=== PATIENT | female | born 1995 | race Caucasian/White ===

== ENCOUNTER 2017-11-05 10:28 | Emergency (ER) | payer OTHER ==
[2017-11-05 10:54] VITALS: BP 140/83; PULSE 63; TEMP 97.7; BMI 28.8
[2017-11-05] MEDS ORDERED: IBUPROFEN 600 MG TABLET (FP) PO ONE ×2 (11:57→12:02)
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
== END 2017-11-05 12:13 | disposition home or self-care (01) ==
LOC: JERFT 10:28
DX: M54.5 Low back pain (principal); V43.52XA Car driver injured in collision with other type car in traffic accident, initial encounter; Y92.488 Other paved roadways as the place of occurrence of the external cause; Y93.89 Activity, other specified; Y99.8 Other external cause status; D64.9 Anemia, unspecified; E73.9 Lactose intolerance, unspecified
CPT/HCPCS: 99281-25

== ENCOUNTER 2018-06-09 15:09 | Emergency (ER) | payer BC, OTHER ==
[2018-06-09 15:16] VITALS: BP 118/72; PULSE 90; TEMP 98; BMI 29.3
[2018-06-09] MEDS ORDERED: KETOROLAC TROMETHAMINE 60 MG/2 ML VIAL IM ONE (16:04)
--- NOTE | 2018-06-09 16:04 | PDOC ---
History of Present Illness - General Chief Complaint: Pain Stated Complaint: LOWER BACK PAIN Time Seen by Provider: 06/09/18 15:34 Past History - Travel Traveled outside of the country in the last 30 days: No Close contact w/someone who was outside of country & ill: No - Past Medical History Allergies/Adverse Reactions: Allergies Allergy/AdvReac Type Severity Reaction Status Date / Time No Known Allergies Allergy Verified 06/09/18 15:15 Home Medications: Ambulatory Orders Cyclobenzaprine HCl [Flexeril -] 10 mg PO HS #10 tablet 06/09/18 Ibuprofen 800 mg PO TID #30 tablet 06/09/18 Oxycodone HCl/Acetaminophen [Percocet 5-325 mg Tablet] 1 tab PO Q6H #15 tablet MDD 4 06/09/18 Anemia: Yes COPD: No Other medical history: herniated discs in lower back - Suicide/Smoking/Psychosocial Hx Smoking Status: No Smoking History: Never smoked Number of Cigarettes Smoked Daily: 0 Hx Alcohol Use: No Drug/Substance Use Hx: No Substance Use Type: None Review of Systems - Review of Systems Able to Perform ROS?: Yes Comments:: 06/09/18 17:10 CONSTITUTIONAL: Absent: fever, chills, diaphoresis, generalized weakness, malaise, loss of appetite HEENT: Absent: rhinorrhea, nasal congestion, throat pain, throat swelling, difficulty swallowing, mouth swelling, ear pain, eye pain, visual Changes CARDIOVASCULAR: Absent: chest pain, loss of consciousness, palpitations, irregular heart rate, peripheral edema RESPIRATORY: Absent: cough, shortness of breath, dyspnea with exertion, orthopnea, wheezing, stridor, hemoptysis GASTROINTESTINAL: Absent: abdominal pain, abdominal distension, nausea, vomiting, diarrhea, constipation, melena, hematochezia GENITOURINARY: Absent: dysuria, frequency, urgency, hesitancy, hematuria, flank pain, genital pain MUSCULOSKELETAL: Absent: myalgia, arthralgia, joint swelling SKIN: Absent: rash, itching, pallor HEMATOLOGIC/IMMUNOLOGIC: Absent: easy bleeding, easy bruising, lymphadenopathy, frequent infections ENDOCRINE: Absent: unexplained weight gain, unexplained weight loss, heat intolerance, cold intolerance NEUROLOGIC: Absent: headache, focal weakness or paresthesias, dizziness, unsteady gait, seizure, mental status changes, bladder or bowel incontinence PSYCHIATRIC: Absent: anxiety, depression, suicidal or homicidal ideation, hallucinations. Is the patient limited [place] proficient: No *Physical Exam - Vital Signs Last Vital Signs Temp Pulse Resp BP Pulse Ox 98 F 90 18 118/72 99 06/09/18 15:13 06/09/18 15:13 06/09/18 15:13 06/09/18 15:13 06/09/18 15:13 - Physical Exam Comments: 06/09/18 17:10 GENERAL: Well developed, well nourished. Awake and alert. No acute distress. HEENT: Normocephalic, atraumatic. PERRLA, EOMI. No conjunctival pallor. Sclera are non- icteric. Moist mucous membranes. Oropharynx is clear. NECK: Supple. Full ROM. No JVD. Carotid pulses 2+ and symmetric, without bruits. No thyromegaly. No lymphadenopathy. CARDIOVASCULAR: Regular rate and rhythm. No murmurs, rubs, or gallops. Distal pulses are 2+ and symmetric. PULMONARY: No evidence of respiratory distress. Lungs clear to auscultation bilaterally. No wheezing, rales or rhonchi. ABDOMINAL: Soft. Non-tender. Non-distended. No rebound or guarding. No organomegaly. Normoactive bowel sounds. MUSCULOSKELETAL Normal range of motion at all joints. No bony deformities or tenderness. No CVA tenderness. EXTREMITIES: No cyanosis. No clubbing. No edema. No calf tenderness. SKIN: Warm and dry. Normal capillary refill. No rashes. No jaundice. NEUROLOGICAL: Alert, awake, appropriate. Cranial nerves 2-12 intact. No deficits to light touch and temperature in face, upper extremities and lower extremities. No motor deficits in the in face, upper extremities and lower extremities. Normoreflexic in the upper and lower extremities. Normal speech. Toes are down- going bilaterally. Gait is normal without ataxia. PSYCHIATRIC: Cooperative. Good eye contact. Appropriate mood and affect. *DC/Admit/Observation/Transfer Diagnosis at time of Disposition: Low back pain Qualifiers: Chronicity: acute Back pain laterality: midline Sciatica presence: with sciatica Sciatica laterality: bilateral sciatica Qualified Code(s): M54.42 - Lumbago with sciatica, left side; M54.41 - Lumbago with sciatica, right side - Discharge Dispostion Disposition: HOME Condition at time of disposition: Stable Decision to Admit order: No - Referrals Referrals: Karen Alejandra MD [Primary Care Provider] - Chico Ferrell MD [Staff Physician] - - Patient Instructions Printed Discharge Instructions: DI for Low Back Pain Additional Instructions: You have low back pain due to a muscle spasm. Please take ibuprofen 800 mg 3 times a day not to exceed 3000 mg a day. You were also prescribed Flexeril. Please take this medication every 8 hours for the first day. Then take the medication before you go to bed. Do not drive after taking this medication as it may make you sleepy. You may take a percocet every 6 hours as needed for break through pain. You may use warm compresses on your back to help with her symptoms. Please follow-up with your primary care doctor. If your symptoms do not resolve in 3-5 days, follow-up with neurosurgery/spine. A referral has been provided for you. Return to the emergency department if you have worsening back pain, bladder or bowel incontinence, numbness and tingling in her legs, changes in the way you walk, or any new or worsening symptoms. Do not lift more than 10 pounds for the next week - Post Discharge Activity Forms/Work/School Notes: Back to Work
[2018-06-09] MEDS ORDERED: CYCLOBENZAPRINE HCL 10 MG TABLET (FP) PO ONE (16:05)
[2018-06-09] MEDS ORDERED: KETOROLAC TROMETHAMINE 60 MG/2 ML VIAL ONE (16:09)
[2018-06-09] MEDS ORDERED: CYCLOBENZAPRINE HCL 10 MG TABLET (FP) ONE (16:09)
== END 2018-06-09 17:24 | disposition home or self-care (01) ==
LOC: JERFT 15:09
PROC: 3E0233Z Introduction of Anti-inflammatory into Muscle, Percutaneous Approach (ICD-10-PCS; principal; 2018-06-09)
DX: M54.41 Lumbago with sciatica, right side (principal); M54.42 Lumbago with sciatica, left side; Z86.2 Personal history of diseases of the blood and blood-forming organs and certain disorders involving the immune mechanism
CPT/HCPCS: 72100-TC-FY; 96372; 99281-25

== ENCOUNTER 2018-11-01 23:04 | Emergency (ER) | payer BC ==
[2018-11-01 23:08] VITALS: BP 131/80; BMI 31.3
--- NOTE | 2018-11-02 00:10 | PDOC ---
History of Present Illness - General Chief Complaint: Pain Stated Complaint: ABD PAIN History Source: Patient Exam Limitations: No Limitations - History of Present Illness Initial Comments: 11/02/18 00:04 23 yo F with a hx of anemia presents to the emergency department with lower abdominal pain with associative nausea and dysuria. Per the patient, the pain came about at around 1 pm, burning/stabbing sensation, 10/10, non radiating, with some relief with tylenol. Endorses the following: bilateral lower back pain. States this pain feels like her previous UTI 1 year ago. She uses oral contraceptives with LMP 2-3 weeks ago. Denies the following: fever, chills, visual changes, hematuria, vaginal bleeding/spotting, diarrhea, trauma, and leg pain/swelling. Meds: None Allergies: None Social: Denies tobacco, alcohol, and substance abuse. 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 Past History - Past Medical History Allergies/Adverse Reactions: Allergies Allergy/AdvReac Type Severity Reaction Status Date / Time No Known Allergies Allergy Verified 11/01/18 23:08 Home Medications: Ambulatory Orders Cyclobenzaprine HCl [Flexeril -] 10 mg PO HS #10 tablet 06/09/18 Ibuprofen 800 mg PO TID #30 tablet 06/09/18 Oxycodone HCl/Acetaminophen [Percocet 5-325 mg Tablet] 1 tab PO Q6H #15 tablet MDD 4 06/09/18 Sulfamethoxazole/Trimethoprim [Bactrim Ds -] 1 tab PO BID #28 tablet 11/02/18 Anemia: Yes COPD: No - Suicide/Smoking/Psychosocial Hx Smoking Status: No Smoking History: Never smoked Number of Cigarettes Smoked Daily: 0 Hx Alcohol Use: No Drug/Substance Use Hx: No Substance Use Type: None Review of Systems - Review of Systems Able to Perform ROS?: Yes Is the patient limited Serbian proficient: No Constitutional: No: Chills, Diaphoresis, Fever, Weakness HEENTM: No: Recent change in vision, Ear Pain, Nose Pain, Throat Pain, Mouth Pain Respiratory: No: Cough, Shortness of Breath, SOB with Exertion, SOB at Rest, Hemoptysis Cardiac (ROS): No: Chest Pain, Lightheadedness, Palpitations, Syncope, Chest Tightness ABD/GI: No: Constipated, Diarrhea, Nausea, Rectal Bleeding, Vomiting, Tarry Stools : Yes: Dysuria. No: Hematuria, Urgency Musculoskeletal: Yes: Back Pain. No: Joint Pain, Neck Pain Integumentary: No: Erythema, Rash Neurological: No: Headache, Numbness, Ataxia, Dizziness Psychiatric: No: Change in Appetite Endocrine: No: Unexplained Weight Gain Hematologic/Lymphatic: No: Anemia *Physical Exam - Vital Signs Last Vital Signs Temp Pulse Resp BP Pulse Ox 97.8 F 86 18 131/80 98 11/01/18 23:06 11/01/18 23:06 11/01/18 23:06 11/01/18 23:06 11/01/18 23:06 - Physical Exam General Appearance: Yes: Nourished, Appropriately Dressed. No: Apparent Distress, Intoxicated HEENT: positive: EOMI, BRAYDEN, Normal ENT Inspection, Symmetrical, Pharynx Normal , Hearing Grossly Normal. negative: Pale Conjunctivae, Scleral Icterus (R), Scleral Icterus (L), Muffled/Hoarse voice, Pharyngeal Erythema, Tonsillar Exudate, Tonsillar Erythema, Nasal Congestion, Rhinorrhea, Sinus Tenderness, Excessive drooling Neck: positive: Trachea midline, Supple. negative: Tender, Lymphadenopathy (R) , Lymphadenopathy (L), Tender lateral, Tender midline Respiratory/Chest: positive: Lungs Clear, Normal Breath Sounds. negative: Chest Tender, Respiratory Distress, Accessory Muscle Use, Crackles, Rales, Rhonchi, Stridor, Wheezing, Hyperresonant Cardiovascular: positive: Regular Rhythm, Regular Rate, S1, S2. negative: Systolic Murmur Gastrointestinal/Abdominal: positive: Normal Bowel Sounds, Tender (suprapubic tenderness. No tenderness in the RLQ, LLQ, RUQ, and LUQ. ), Flat, Soft. negative: Rebound, Tenderness, Hernia Lymphatic: negative: Adenopathy Musculoskeletal: positive: Normal Inspection, CVA Tenderness (R), CVA Tenderness (L). negative: Vertebral Tenderness Extremity: positive: Normal Capillary Refill, Normal Inspection, Normal Range of Motion. negative: Tender Integumentary: positive: Normal Color, Dry, Warm. negative: Rash Neurologic: positive: fur dyer II-XII NML intact, Fully Oriented, Alert, Normal Mood/ Affect, Normal Response, Motor Strength 5/5 Moderate Sedation - Procedure Monitoring Vital Signs: Procedure Monitoring Vital Signs Temperature 97.8 F 11/01/18 23:06 Pulse Rate 86 11/01/18 23:06 Respiratory Rate 18 11/01/18 23:06 Blood Pressure 131/80 11/01/18 23:06 O2 Sat by Pulse Oximetry (%) 98 11/01/18 23:06 Medical Decision Making - Medical Decision Making 23 yo F with a hx of anemia presents to the emergency department with lower abdominal pain with associative nausea and dysuria. Initial vitals; Initial Vital Signs Temp Pulse Resp BP Pulse Ox 97.8 F 86 18 131/80 98 11/01/18 23:06 11/01/18 23:06 11/01/18 23:06 11/01/18 23:06 11/01/18 23:06 Work up: ddx: UTI vs nephrolithiasis vs pyelo vs Laboratory Tests 11/02/18 00:21 Urine Color Yellow Urine Appearance Cloudy Urine pH 5.0 Ur Specific [place] 1.034 Urine Protein Negative Urine Glucose (UA) Negative Urine Ketones Trace H Urine Blood Negative Urine Nitrite Negative Urine Bilirubin Negative Urine Urobilinogen 2.0 H Ur Leukocyte Esterase 2+ H Urine WBC (Auto) 884 Urine RBC (Auto) 41 Ur Epithelial Cells Rare Urine Mucus Many Urine HCG, Qual Negative patient has a UTI. Will prescribe bactrim BID for 14 days. Patient agreed and will follow up with primary medical doctor. Dispo: Discharge. At the time of discharge, patient was able to ambulate out of the department. *DC/Admit/Observation/Transfer Diagnosis at time of Disposition: Pyelonephritis UTI (urinary tract infection) Qualifiers: Urinary tract infection type: site unspecified Hematuria presence: without hematuria Qualified Code(s): N39.0 - Urinary tract infection, site not specified - Discharge Dispostion Disposition: HOME Decision to Admit order: No - Prescriptions Prescriptions: Sulfamethoxazole/Trimethoprim [Bactrim Ds -] 1 tab PO BID #28 tablet - Referrals Referrals: Karen Alejandra MD [Primary Care Provider] - - Patient Instructions Printed Discharge Instructions: DI for Urinary Tract Infection (UTI) Additional Instructions: You were seen in the emergency department for the evaluation of your pain with urination and lower abdominal pain. Your urine analysis shows that you have an urinary infection. You have been prescribed bactrim twice a day for 14 days; please take this. Please return to the emergency department if you have worsening symptoms or new concerning symptoms such as fevers, increasing back pain, chills, and uncontrollable nausea and vomiting. Please follow up with your primary medical doctor within 1 week after discharge for follow up care and management. Thank you. - Post Discharge Activity Forms/Work/School Notes: Back to Work
[2018-11-02 00:35] LABS: URINE APPEARANCE CLOUDY; URINE BILIRUBIN NEGATIVE (<2.0 mg/dL); URINE COLOR YELLOW; URINE GLUCOSE (UA) NEGATIVE (NEGATIVE); URINE KETONE TRACE (NEGATIVE); URINE LEUK ESTERASE 2+ (NEGATIVE); URINE NITRITE NEGATIVE (NEGATIVE); URINE PROTEIN NEGATIVE (NEGATIVE)
[2018-11-02 00:36] LABS: HCG,QUALITATIVE URINE Negative
[2018-11-02 00:41] LABS: EPI CELLS RARE /HPF (FEW); URINE MUCUS MANY
--- NOTE | 2018-11-02 01:08 | PDOC ---
Attending Attestation - Resident Resident Name: Darius Cloud - ED Attending Attestation I have performed the following: I have examined & evaluated the patient, The case was reviewed & discussed with the resident, I agree w/resident's findings & plan, Exceptions are as noted - HPI HPI: 11/02/18 01:17 The patient is a 23 year old female, with a significant past medical history of anemia who presents to the emergency department with lower abdominal pain described as burning, stabbing sensation, 8/10, radiating to her lower back since 1pm with associated nausea and dysuria. The patient reports this pain feels like her previous UTI (1 year ago). The patient notes her last menstrual period was 2-3 weeks ago. The patient denies chest pain, shortness of breath, headache or dizziness. The patient denies fever, chills, vomit, diarrhea or constipation. The patient denies frequency, urgency or hematuria. Allergies: NKA Past surgical history: Elective . Social history: No reported PCP: Dr. Alejandra - Physicial Exam PE: 11/02/18 01:18 GENERAL: Awake, alert, and fully oriented, in no acute distress. Non toxic appearing. EYES: PERRLA, EOMI, sclera anicteric, conjunctiva clear ENT: Oropharynx clear without exudates. Moist mucosa LUNGS: Breath sounds equal, clear to auscultation bilaterally. No wheezes, and no crackles HEART: Regular rate and rhythm, normal S1 and S2, no murmurs, rubs or gallops ABDOMEN: Soft, +suprapubic ttp. No RLQ or LLQ ttp. No guarding, no rebound. No masses : +R CVAT EXTREMITIES: Normal range of motion, no edema. No cords, erythema, or tenderness NEUROLOGICAL: Normal speech, cranial nerves intact, equal strength and sensation b/l SKIN: Warm, Dry, normal turgor, no rashes or lesions noted. - Medical Decision Making 11/02/18 01:20 23yo F presents to the ED with dysuria, suprapubic pain. Vitals wnl. Exam with R CVAT. UA ++ for UTI. Likely pyelonephritis. Pt non toxic appearing, afebrile, tolerating PO and thus is outpt candidate for pyelo tx. Will prescribe 14 day course of bactrim, return precautions given. Pt requests DC home. I discussed the physical exam findings, ancillary test results and final diagnoses with the patient. I answered all of the patient's questions. The patient was satisfied with the care received and felt comfortable with the discharge plan and treatment plan. The patient will call their primary care physician within 24 hours to arrange follow-up and will return to the Emergency Department with any new, persistent or worsening symptoms.
[2018-11-02 01:59] VITALS: PULSE 80; TEMP 98
== END 2018-11-02 01:43 | disposition home or self-care (01) ==
LOC: JER 23:04
DX: N39.0 Urinary tract infection, site not specified (principal); N12 Tubulo-interstitial nephritis, not specified as acute or chronic
CPT/HCPCS: 81003; 81015; 84703; 87086; 99282-25

== ENCOUNTER 2020-05-08 21:55 | Emergency (ER) | payer BC, OTHER ==
--- NOTE | 2020-05-08 22:00 | PDOC ---
Rapid Medical Evaluation Time Seen by Provider: 05/08/20 21:57 Medical Evaluation: Allergies Allergy/AdvReac Type Severity Reaction Status Date / Time No Known Allergies Allergy Verified 11/01/18 23:08 05/08/20 21:57 I performed a brief in-person evaluation of this patient. Pt is a 24 y/o female who presents to the ED with complaint of R knee pain after a pop while lifting dog food bags yesterday. She has been walking on it since but states now it is getting worse. Pt took ibuprofen without any relief. Pertinent physical exam findings: pt able to straight leg raise, no gross deformity I have ordered the following: R knee xray Patient to proceed to ED for further evaluation. Discharge Disposition - Diagnosis Right knee pain - Referrals - Patient Instructions - Post Discharge Activity
[2020-05-08 22:01] VITALS: BP 117/75; PULSE 97; TEMP 98.2; BMI 28.5
[2020-05-08] MEDS ORDERED: KETOROLAC TROMETHAMINE 30 MG/1 ML VIAL IVPUSH ONE (22:42)
[2020-05-08] MEDS ORDERED: ACETAMINOPHEN 500 MG TABLET (FP) PO ONE (22:42)
[2020-05-08] MEDS ORDERED: ACETAMINOPHEN 325 MG TABLET (FP) ONE (22:51)
[2020-05-08] MEDS ORDERED: KETOROLAC TROMETHAMINE 30 MG/1 ML VIAL ONE (22:51)
--- NOTE | 2020-05-08 22:51 | PDOC ---
Documentation entered by Veronica Hill SCRIBE, acting as scribe for Mya Matthews MD. Mya Matthews MD: This documentation has been prepared by the scribe, Veronica Hill SCRIBE, under my direction and personally reviewed by me in its entirety. I confirm that the documentation accurately reflects all work, treatment, procedures, and medical decision making performed by me. Attending Attestation - Resident Resident Name: Oj Singer - ED Attending Attestation I have performed the following: I have examined & evaluated the patient, The case was reviewed & discussed with the resident, I agree w/resident's findings & plan - HPI HPI: 05/08/20 22:47 Ms. Carmel Gupta is a 24-year-old female with no significant past medical history who presents to the emergency department with a stabbing, crampy pain to the right knee with pain radiating down the right leg and foot with difficulty weight bearing. The patient reports she was lifting a 60 ib dog food bag when she felt like her right knee gave out and she felt a popping sound. Denies falling, states she slowly sat down on the ground. The patient reports taking a dose of 600mg of Ibuprofen yesterday, without relief. Denies taking any pain medication today. - Physicial Exam PE: 05/08/20 22:41 physical exam General: NAD, well appearing HEENT: NCAT, EOMI, PERRL. airway patent Resp: no distress, speaking full sentences. Vascular: 2+ DP pulses symmetric and equal. MSK: soft compartment. 5/5 plantar and dorsiflexion. SILT. no laxity at knee jt. 2+ DP pulses bilaterally. +right anterior knee TTP, mild bruising. no palp joint effusion. no calf tenderness. limited ROM in extension/flexion 2/2 pain. Neuro: alert, no focal neurologic deficits Skin: color normal color, warm and well perfused. Cap refill <2 sec. - Medical Decision Making 05/08/20 22:50 MSK injury: Vital Signs Temp Pulse Resp BP Pulse Ox 98.2 F 97 H 19 117/75 98 05/08/20 21:58 05/08/20 21:58 05/08/20 21:58 05/08/20 21:58 05/08/20 21:58 VS reviewed, wnl Xray rt knee normal joint space alignment, no acute fx or dislocation.patella wnl, on the sunrise view analgesia knee immobilizer rest/x 3-5 days, likely knee sprain Discussed results with patient. PER wrap for comfort,. Rest ice and elevation. Pain control with OTC meds including motrin/tylenol as needed every 6 hours; no narcotics needed. Ortho followup provided. Crutches to assist with ambulation, WBAT. Please return to ED for increased pain, weakness, numbness/tingling, fever, or redness. 05/08/20 23:03 Discharge - Discharge Information Problems reviewed: Yes Clinical Impression/Diagnosis: Right knee pain Qualifiers: Chronicity: acute Qualified Code(s): M25.561 - Pain in right knee Contusion of knee, right Qualifiers: Encounter type: initial encounter Qualified Code(s): S80.01XA - Contusion of right knee, initial encounter Condition: Improved Disposition: HOME - Admission No - Follow up/Referral Referrals: Karen Alejandra MD [Primary Care Provider] - Rakesh Torrez MD [Staff Physician] - Saul Shafer DO [Staff Physician] - Jose Ramirez MD [Staff Physician] - - Patient Discharge Instructions Patient Printed Discharge Instructions: DI for Knee Sprain Additional Instructions: ORTHO INJURY You most likely have musculoskeletal strain/sprain of right knee Avoid heavy lifting or strenuous activity to minimize further injury This should heal over the next 3-5 days. RICE rest ice elevate the affected area Rest, Ice (20 minutes at a time, 3 times a day), Compression (PER wrap or splint), Elevation (above the heart). Apply ice to the area for 10 minutes every 2 hours for the first 2 days after the injury to reduce swelling. continue with range of motion exercises, as this will facilitate the healing process; avoid being bed bound and immobile. If you have any worsening of symptoms, including severe pain/swelling/rednes s/numbness/changes in sensation/weakness/paralysis or any other concerns please return to the Emergency Department immediately. You were given a copy of the results from any tests performed today in the Emergency Department which have results available. Show these to your doctor(s). Some of the tests we sent may not have results yet so please call or have your doctor call the Emergency Department to follow up on all results. Please continue taking your home medications as directed. Do not use alcohol when taking any medication (especially antibiotics, tylenol or other pain medication) unless you check with the doctor or pharmacist. -May take ibuprofen 400-600mg and/or tylenol 650 to 975 mg every 6 hours as needed for mild to moderate pain, available over the counter. This does not require narcotics, as it will precipitate injuries and falls. Please follow up with your orthopedic, within the next 1 week, but seek medical care sooner if your symptoms persist or worsen. Please call as soon as possible for an appointment. If you cannot follow up with your doctor please return to the Emergency Department for any urgent issues. Follow up with your primary care physician in 1 week if symptoms persist, or with orthopedics specialists if needed, referrals have been provided. - Post Discharge Activity Work/Back to School Note: Back to Work
--- NOTE | 2020-05-08 22:53 | PDOC ---
History of Present Illness - General Chief Complaint: Pain, Acute Stated Complaint: RIGHT PATELLA INJURY Time Seen by Provider: 05/08/20 21:57 - History of Present Illness Initial Comments: 05/08/20 22:43 24y/o F no sig medical hx, presents to the ED with right knee pain. pt reports she was lifting 60 lb bags off the floor in a squatting position and moving them to her right side, when she felt her knee pop. She felt pain as the incident happened and had to sit down. able to ambulate of the floor, but not bearing weight on the affected leg due to pain. she rates pain as 9/10 radiating down to her foot. Took ibuprofen the day before (600mg) with no relief. Has not taken any pain medications today. PMHx: as noted above ROS: as noted SHx: Denies Etoh, IVDA, tobacco use Allergies: NKDA ROS: GENERAL/CONSTITUTIONAL: No fever or chills. No weakness. HEAD, EYES, EARS, NOSE AND THROAT: No change in vision. No ear pain or discharge. No sore throat. CARDIOVASCULAR: No chest pain or shortness of breath RESPIRATORY: No cough, wheezing, or hemoptysis. GASTROINTESTINAL: No nausea, vomiting, diarrhea or constipation. GENITOURINARY: No dysuria, frequency, or change in urination. MUSCULOSKELETAL: +knee pain. SKIN: No rash NEUROLOGIC: No headache, vertigo, loss of consciousness, or change in strength/sensation. ENDOCRINE: No increased thirst. No abnormal weight change HEMATOLOGIC/LYMPHATIC: No anemia, easy bleeding, or history of blood clots. ALLERGIC/IMMUNOLOGIC: No hives or skin allergy. PE: GENERAL: Awake, alert, and fully oriented, in no acute distress HEAD: No signs of trauma, normocephalic, atraumatic EYES: PERRLA, EOMI, sclera anicteric, conjunctiva clear ENT: Auricles normal inspection, hearing grossly normal, nares patent, oropharynx clear without exudates. Moist mucosa NECK: Normal ROM, supple, no lymphadenopathy, JVD, or masses LUNGS: No distress, speaks full sentences, clear to auscultation bilaterally HEART: Regular rate and rhythm, normal S1 and S2, no murmurs, rubs or gallops, peripheral pulses normal and equal bilaterally. ABDOMEN: Soft, nontender, normoactive bowel sounds. No guarding, no rebound. No masses EXTREMITIES : Normal inspection, no swelling observed in right knee, ttp palpation over patella. able to extend, flex at the knee. stength 5/5 sensation intact. ttp down right leg laterally. NEUROLOGICAL: Cranial nerves II through XII grossly intact. Normal speech, no focal sensorimotor deficits SKIN: Warm, Dry, normal turgor, no rashes or lesions noted 05/09/20 20:22 Past History - Medical History Allergies/Adverse Reactions: Allergies Allergy/AdvReac Type Severity Reaction Status Date / Time No Known Allergies Allergy Verified 11/01/18 23:08 Home Medications: Ambulatory Orders Cyclobenzaprine HCl [Flexeril -] 10 mg PO HS #10 tablet 06/09/18 Ibuprofen 800 mg PO TID #30 tablet 06/09/18 Oxycodone HCl/Acetaminophen [Percocet 5-325 mg Tablet] 1 tab PO Q6H #15 tablet MDD 4 06/09/18 Sulfamethoxazole/Trimethoprim [Bactrim Ds -] 1 tab PO BID #28 tablet 11/02/18 Anemia: Yes COPD: No - Psycho-Social/Smoking History Smoking Status: No Smoking History: Never smoked Number of Cigarettes Smoked Daily: 0 - Substance Abuse Hx (Audit-C & DAST Scrn) How often the patient has a drink containing alcohol: Never Score: In Men: 4 or > Positive; In Women: 3 or > Positive: 0 Screen Result (Pos requires Nsg. Audit-10AR): Negative In the last yr the pt used illegal drug/Rx for NonMed reason: No Score: Yes response is considered Positive: 0 Screen Result (Positive result requires Nsg. DAST-10): Negative *Physical Exam - Vital Signs Last Vital Signs Temp Pulse Resp BP Pulse Ox 98.2 F 97 H 19 117/75 98 05/08/20 21:58 05/08/20 21:58 05/08/20 21:58 05/08/20 21:58 05/08/20 21:58 Medical Decision Making - Medical Decision Making 05/08/20 22:53 24y/o F no sig medical hx, presents to the ED with right knee pain. ddx: fracture vs msk strain vs less likely ligament tear (as patient flexing and extending at knee) x-ray meds for pain: toradol and tylenol. Knee x-ray no sign of fracture/subluxation no sign of blastic/lytic changes tiny bone island in proximal tibia lateral aspect pt sent home with crutches and knee was per wrapped for support given instructions to follow up with her PCP as well as return precautions. Discharge - Discharge Information Problems reviewed: Yes Clinical Impression/Diagnosis: Right knee pain Qualifiers: Chronicity: acute Qualified Code(s): M25.561 - Pain in right knee Contusion of knee, right Qualifiers: Encounter type: initial encounter Qualified Code(s): S80.01XA - Contusion of right knee, initial encounter Condition: Improved Disposition: HOME - Follow up/Referral Referrals: Rakesh Torrez MD [Staff Physician] - Jose Ramirez MD [Staff Physician] - Saul Shafer DO [Staff Physician] - Karen Alejandra MD [Primary Care Provider] - - Patient Discharge Instructions Patient Printed Discharge Instructions: DI for Knee Sprain Additional Instructions: ORTHO INJURY You most likely have musculoskeletal strain/sprain of right knee Avoid heavy lifting or strenuous activity to minimize further injury This should heal over the next 3-5 days. RICE rest ice elevate the affected area Rest, Ice (20 minutes at a time, 3 times a day), Compression (PER wrap or splint), Elevation (above the heart). Apply ice to the area for 10 minutes every 2 hours for the first 2 days after the injury to reduce swelling. continue with range of motion exercises, as this will facilitate the healing process; avoid being bed bound and immobile. If you have any worsening of symptoms, including severe pain/swelling/redness/numbness/changes in sensation/weakness/paralysis or any other concerns please return to the Emergency Department immediately. You were given a copy of the results from any tests performed today in the Emergency Department which have results available. Show these to your doctor(s). Some of the tests we sent may not have results yet so please call or have your doctor call the Emergency Department to follow up on all results. Please continue taking your home medications as directed. Do not use alcohol when taking any medication (especially antibiotics, tylenol or other pain medication) unless you check with the doctor or pharmacist. -May take ibuprofen 400-600mg and/or tylenol 650 to 975 mg every 6 hours as needed for mild to moderate pain, available over the counter. This does not require narcotics, as it will precipitate injuries and falls. Please follow up with your orthopedic, within the next 1 week, but seek medical care sooner if your symptoms persist or worsen. Please call as soon as possible for an appointment. If you cannot follow up with your doctor please return to the Emergency Department for any urgent issues. Follow up with your primary care physician in 1 week if symptoms persist, or with orthopedics specialists if needed, referrals have been provided. - Post Discharge Activity Work/Back to School Note: Back to Work
== END 2020-05-08 23:30 | disposition home or self-care (01) ==
LOC: JER 21:55
PROC: 3E0333Z Introduction of Anti-inflammatory into Peripheral Vein, Percutaneous Approach (ICD-10-PCS; principal; 2020-05-08)
DX: M25.561 Pain in right knee (principal); S80.01XS Contusion of right knee, sequela
CPT/HCPCS: 73562-TC-RT-FY; 99284-25

== ENCOUNTER 2024-04-07 19:59 | Emergency (ER) | payer OTHER ==
[2024-04-07 20:34] VITALS: BP 121/68; PULSE 83; RESP 20; TEMP 98.5; BMI 43.9
[2024-04-07] MEDS ORDERED: LIDOCAINE PATCH REMOVAL MC SCH (22:00)
[2024-04-07] MEDS ORDERED: LIDOCAINE 4% PATCH TP ONE (22:07)
[2024-04-07] MEDS ORDERED: ACETAMINOPHEN 500 MG TABLET (FP) ONE (22:08)
[2024-04-07] MEDS ORDERED: METHOCARBAMOL 500 MG TABLET ONE (22:08)
[2024-04-07] MEDS ORDERED: KETOROLAC TROMETHAMINE 30 MG/1 ML VIAL ONE (22:08)
[2024-04-07] MEDS: METHOCARBAMOL 500 MG TABLET PO ONE (22:18)
[2024-04-07] MEDS: LIDOCAINE 4% PATCH TP ONE (22:18)
[2024-04-07] MEDS: KETOROLAC TROMETHAMINE 30 MG/1 ML VIAL IM ONE (22:18)
[2024-04-07] MEDS: ACETAMINOPHEN 500 MG TABLET (FP) PO ONE (22:19)
== END 2024-04-07 22:56 | disposition home or self-care (01) ==
LOC: JER 19:59
PROC: 3E0133Z Introduction of Anti-inflammatory into Subcutaneous Tissue, Percutaneous Approach (ICD-10-PCS; principal; 2024-04-07)
DX: M54.50 Low back pain, unspecified (principal); G89.29 Other chronic pain
CPT/HCPCS: 84703; 99284-25